=== PATIENT | female | born 1995 | race Caucasian/White ===

== ENCOUNTER 2024-02-02 07:30 | Day surgery (SDC) | payer OTHER ==
[~2024-02-02 07:30] MED LIST: Dexamethasone 4 MG/ML 5 ML MDV ONE; Midazolam 1 MG/ML 2 ML SDV ONE; Ondansetron 4 MG/2 ML SDV ONE; Phenylephrine 1% 10 MG/ML SDV ONE; Propofol 200 MG/20 ML SDV ONE; Rocuronium 50 MG/5 ML Vial ONE; Sodium Chloride 0.9% 10 ML Syringe FLUSH PRN; Sodium Chloride 0.9% 10 ML Syringe FLUSH SCH; fentaNYL 250 MCG/5 ML SDV ONE
[2024-02-02] MEDS ORDERED: ceFAZolin 2 GM Vial ONE (07:39)
[2024-02-02] MEDS: Lactated Ringers 1,000 ML IV SCH (07:45)
[2024-02-02] MEDS: Phenazopyridine 95 MG Tab PO ONE (07:51)
[2024-02-02 07:58] LABS: BASOPHILS PERCENT AUTO 0.7 % (0.0-1.0); EOSINOPHILS ABSOLUTE AUTO 0.1 K/mm3 (0.0-0.4); EOSINOPHILS PERCENT AUTO 1.5 % (0.0-6.0); HEMATOCRIT 49.5 % (37.0-47.0); HEMOGLOBIN 17.4 gm/dl (12.0-16.0); IMMATURE GRAN ABSOLUTE AUTO 0.01 K/mm3 (0.00-0.05); IMMATURE GRAN PERCENT AUTO 0.2 % (0.0-0.4); LYMPHOCYTES ABSOLUTE AUTO 1.8 K/mm3 (1.0-4.8); LYMPHOCYTES PERCENT AUTO 29.3 % (24.0-44.0); MEAN CORPUSCULAR HEMOGLOBIN 32.2 pg (28.0-32.0); MEAN CORPUSCULAR HGB CONC 35.2 g/dl (32.0-36.0); MEAN CORPUSCULAR VOLUME 91.7 fl (83.0-99.0); MEAN PLATELET VOLUME 10.1 fl (9.4-12.3); MONOCYTES ABSOLUTE AUTO 0.4 K/mm3 (0.0-0.8); MONOCYTES PERCENT AUTO 6.9 % (0.0-8.0); NEUTROPHILS ABSOLUTE AUTO 3.7 K/mm3 (1.8-7.7); NEUTROPHILS PERCENT AUTO 61.4 % (41.0-71.0); PLATELET COUNT,PLT 254 K/mm3 (150-400); WHITE BLOOD CELL COUNT,WBC 6.07 K/mm3 (3.9-11.3)
[2024-02-02] MEDS: Scopalamine 1mg/3day Transdermal Patch TRDERM SCH (08:00)
[2024-02-02] MEDS ORDERED: fentaNYL 100 MCG/2 ML SDV IVPUSH PRN (08:03)
[2024-02-02] MEDS ORDERED: Ondansetron 4 MG/2 ML SDV IVPUSH PRN (08:03)
[2024-02-02 08:06] LABS: ANION GAP 17.5 (5-15); BUN/CREATININE RATIO 8.8 (14-18); CALCIUM 9.7 mg/dL (8.5-10.1); CREATININE 0.8 mg/dL (0.55-1.02); EST CRCL DRUG DOSING (CG) 92.38 mL/min; POTASSIUM,K 3.5 mEq/L (3.5-5.1)
[2024-02-02] MEDS ORDERED: Sugammadex Sodium 200 MG/2 ML VIAL IV ONE (08:30)
[2024-02-02] MEDS: Lidocaine 1% with EPINEPHrine 1:100,000 20 ML MDV ONE (09:00)
[2024-02-02] MEDS ORDERED: fentaNYL 100 MCG/2 ML SDV ONE (09:03)
[2024-02-02] MEDS: Ketorolac 30 MG/ML SDV IVPUSH SCH (10:05)
[2024-02-02] MEDS: HYDROmorphone 0.5 MG/0.5 ML Syringe IVPUSH PRN (10:30)
[2024-02-02] MEDS: Acetaminophen/HYDROcodone 325-5 MG Tab PO ONE (11:56)
== END 2024-02-02 13:15 | disposition home or self-care (01) ==
LOC: JD.SDS 07:30
PROVIDERS: ATTEND Obstetrics & Gynecology
DX: D25.2 Subserosal leiomyoma of uterus (principal); N80.03 Adenomyosis of the uterus; N72 Inflammatory disease of cervix uteri; N83.8 Other noninflammatory disorders of ovary, fallopian tube and broad ligament; Z87.891 Personal history of nicotine dependence
CPT/HCPCS: 36415; 58571; 80048; 81025; 85025; 86850; 86900; 86901; A9270; J0690; J1100; J1170; J1885; J2250; J2371; J2405; J2704; J3010; J3490; J7030; J7120; 00944